=== PATIENT | male | born 1995 | race Caucasian/White ===

== ENCOUNTER 2017-10-02 22:19 | Emergency (ER) | payer SELFPAY, OTHER | END 2017-10-03 03:42 | disposition left against medical advice (07) | LOC: E/R 10-03 03:42 | DX: Z53.21 Procedure and treatment not carried out due to patient leaving prior to being seen by health care provider (principal) ==

== ENCOUNTER 2018-03-03 01:37 | Emergency (ER) | payer BC, OTHER ==
[2018-03-03] MEDS: ONDANSETRON 4 MG INJ IV (02:45)
[2018-03-03] MEDS: PANTOPRAZOLE IV 80 MG in SOD CHLORIDE 0.9% 100 ML IVPB (02:45)
[2018-03-03] MEDS: SOD CHLORIDE 0.9% 1,000 ML IV (02:45)
[2018-03-03 02:48] LABS: ADD MAN DIFF? NO
[2018-03-03 02:53] LABS: BASOPHIL # 0.1 10^3/ul (0.0-0.1); BASOPHILS % 0.9 % (0.0-2.0); EOSINOPHILS # 0.5 10^3/ul (0.0-0.5); EOSINOPHILS % 5.6 % (0.0-7.0); HEMATOCRIT 42.1 % (42.0-52.0); HEMOGLOBIN 14.4 g/dl (14.0-18.0); LYMPHOCYTES # 2.6 10^3/ul (0.8-2.9); LYMPHOCYTES % 30.1 % (18.0-55.0); MEAN CORPUSCULAR HEMOGLOBIN 29.1 pg (29.0-33.0); MEAN CORPUSCULAR HGB CONC 34.2 g/dl (32.0-37.0); MEAN CORPUSCULAR VOLUME 85.2 fl (72.0-104.0); MEAN PLATELET VOLUME 11.5 fl (7.4-10.4); MONOCYTE # 0.7 10^3/ul (0.3-0.9); MONOCYTES % 8.5 % (0.0-13.0); NEUTROPHIL # 4.7 10^3/ul (1.6-7.5); NEUTROPHILS % 54.4 % (30.0-74.0); PLATELET COUNT 365 10^3/UL (140-415); RED BLOOD COUNT 4.94 10^6/ul (4.70-6.10)
[2018-03-03 02:53] LABS: WHITE BLOOD COUNT 8.7 10^3/ul (4.8-10.8)
[2018-03-03 03:12] LABS: INR 0.96; PROTIME 12.9 Sec (11.9-14.9)
[2018-03-03 03:13] LABS: PARTIAL THROMBOPLASTIN TIME 29.9 Sec (25.0-35.0)
[2018-03-03 03:14] LABS: ALANINE AMINOTRANSFERASE 65 IU/L (13-69); ALBUMIN 4.9 g/dl (3.3-4.9); ALBUMIN/GLOBULIN RATIO 1.48; ALKALINE PHOSPHATASE 92 IU/L (42-121); ANION GAP 19 (8-16); ASPARTATE AMINO TRANSFERASE 53 IU/L (15-46); BILIRUBIN,INDIRECT 0.2 mg/dl (0-1.1); BILIRUBIN,TOTAL 0.2 mg/dl (0.2-1.3); BLOOD UREA NITROGEN 7 mg/dl (7-20); CALCIUM 9.4 mg/dl (8.4-10.2); CARBON DIOXIDE 27 mmol/L (21-31); CHLORIDE 104 mmol/L (97-110); CREATININE 0.95 mg/dl (0.61-1.24); GLUCOSE 92 mg/dl (70-220); LIPASE 102 U/L (23-300); POTASSIUM 4.1 mmol/L (3.5-5.1); SODIUM 146 mmol/L (135-144); TOTAL PROTEIN 8.2 g/dl (6.1-8.1)
[2018-03-03 03:25] LABS: TROPONIN-I < 0.010 ng/ml (0.000-0.120)
== END 2018-03-03 05:20 | disposition home or self-care (01) ==
LOC: E/R 01:37
DX: K92.0 Hematemesis (principal); K29.21 Alcoholic gastritis with bleeding; F17.210 Nicotine dependence, cigarettes, uncomplicated
CPT/HCPCS: 36415; 74176; 80053; 83690; 84484; 85025; 85610; 85730; 86850; 86900; 86901; 93005; 96374; 96375; 99285-25

== ENCOUNTER 2018-08-31 18:18 | Emergency (ER) | payer MEDICAID, BC, OTHER ==
[2018-08-31] MEDS: IBUPROFEN 600 MG TAB PO (19:54)
[2018-08-31] MEDS: ACETAMINOPHEN 325 MG TAB PO (19:55)
== END 2018-08-31 20:20 | disposition home or self-care (01) ==
LOC: FTE 18:18
DX: R05 Cough (principal); R50.9 Fever, unspecified; R52 Pain, unspecified; Z87.891 Personal history of nicotine dependence
CPT/HCPCS: 99283; Z7502

== ENCOUNTER 2018-12-12 18:47 | Emergency (ER) | payer SELFPAY, MEDICAID | END 2018-12-12 21:50 | disposition left against medical advice (07) | LOC: FTE 18:47 | DX: Z53.21 Procedure and treatment not carried out due to patient leaving prior to being seen by health care provider (principal) ==

== ENCOUNTER 2019-02-03 10:28 | Emergency (ER) | payer SELFPAY, MEDICAID | END 2019-02-03 11:03 | disposition home or self-care (01) | LOC: FTE 11:03 | DX: K59.00 Constipation, unspecified (principal); Z87.891 Personal history of nicotine dependence | CPT/HCPCS: 99282 ==